=== PATIENT | female | born 1955 | race Caucasian/White ===

== ENCOUNTER 2020-10-10 16:50 | Emergency (ER) | payer BC, SELFPAY ==
--- NOTE | ~2020-10-10 | XR_ITS ---
XR elbow RT min 3V DATE: 10/10/2020 18:02 INDICATION: Fall. Right elbow injury, pain TECHNIQUE: 3 views COMPARISON: None FINDINGS: Degenerative spurring of the coronoid process of the elbow. No fracture or dislocation or j oint effusion. No periosteal reaction or bone destruction. IMPRESSION: Degenerative change; no fracture or dislocation or joint effusion Reviewed, dictated and finalized at location A.
--- NOTE | ~2020-10-10 | XR_ITS ---
XR shoulder RT min 2V DATE: 10/10/2020 18:02 INDICATION: Fall. Right shoulder and mid humeral pain TECHNIQUE: 5 views COMPARISON: None FINDINGS: Degenerative disc disease of the included mid to lower cervical spine. Degenerative spurrin g and mild scoliosis of the thoracic spine. No fracture or dislocation, periosteal reaction or bone destruction of the right shoulder. IMPRESSION: Degenerative changes of the cervical and thoracic spine No fracture or dislocation of the right shoulder Reviewed, dictated and finalized at location A.
--- NOTE | ~2020-10-10 | CT_ITS ---
EXAMINATION: CT cervical spine wo con DATE: 10/10/2020 18:14 INDICATION: Fall. Neck injury, pain TECHNIQUE: Computed tomography (CT) of the cervical spine was performed without intravenous contrast. Automated exposure control and iterative reconstruction technique were employed. Exam dose: 369.09 mGy-cm total exam DLP. COMPARISON: None FINDINGS: There is straightening of the cervical spine. Normal alignment of the cervical spine. C1 and C2 are normally aligned and the odontoid process is intact. No fracture or dislocation or locked facet. No prevertebral soft tissue swelling. There is multi-level degenerative disc disease, most pronounced at C5-6 and C6-7. There is degenerative change of the apophyseal and uncovertebral joints IMPRESSION: Straightening Multi-level degenerative disc disease, cervical spondylosis Reviewed, dictated and finalized at [facility]. Reviewed, dictated and finalized at location A.
[2020-10-10 16:56] VITALS: BP 131/76; PULSE 73; RESP 16; O2SAT 99
--- NOTE | 2020-10-10 19:36 | ED.GENADULT ---
HPI - General Adult General Chief complaint: Extremity Injury, Upper Stated complaint: FALL-R SHOULDER/ARM INJURY Time Seen by Provider: 10/10/20 16:58 Source: patient Mode of arrival: ambulatory Limitations: no limitations History of Present Illness HPI narrative: Patient is a 65-year-old female who presents to emergency department for evaluation of right upper extremity injury and neck injury that occurred Saturday stepping over a dog gate tripped and fell striking the head and injuring the neck and arm patient presents today for the first time for evaluation noting that she has aching pain to the neck upper arm and elbow patient denies syncope loss of consciousness patient on arrival appears uncomfortable but not in distress denies other complaints or injuries and as noted has not been seen for this Related Data Allergies Allergy/AdvReac Type Severity Reaction Status Date / Time Penicillins Allergy Swelling Verified 10/10/20 17:00 Review of Systems Review of Systems: All systems reviewed & are unremarkable except as noted in HPI and below PMFSH Past Medical History Medical History (Updated 10/10/20 @ 19:52 by Silvano Ortiz PA-C) Obesity Social History Social History (Updated 10/10/20 @ 19:37 by Silvano Ortiz PA-C) Smoking status: Never smoker Exam Narrative: Exam Narrative: GENERAL: Well-appearing, well-nourished, and in no acute distress. HEAD: Normocephalic, atraumatic. EYES: PERRLA and EOMI. ENT: Nares clear, no rhinorrhea or epistaxis. Mucous membranes moist. NECK: Supple. No adenopathy or masses. CHEST: Clear to auscultation. No respiratory distress. No wheezes rales or rhonchi HEART: Regular rate and rhythm. No murmur heard. Normal pulses EXTREMITIES: Patient with tenderness of the right paraspinal cervical musculature of the right rotator cuff musculature in the right elbow with no deformities noted remainder of extremity nontender no deformity SKIN: Warm, dry, no rash. NEURO: No focal deficits. Alert and oriented x3. Cranial nerves II through XII grossly intact. Neurovascularly intact PSYCH: Normal mood and affect. Course Course Emergency Course: Patient evaluated the emergency department found to have no fractures on CT imaging or x-rays potential for soft tissue injury such as rotator cuff injury patient will be referred to orthopedist for further evaluations and primary care. Vital Signs Vital signs: Vital Signs Pulse Rate 73 10/10/20 16:56 Respiratory Rate 16 10/10/20 16:56 Blood Pressure 131/76 10/10/20 16:56 Pulse Oximetry 99 10/10/20 16:56 Pulse Rate 73 10/10/20 16:56 Respiratory Rate 16 10/10/20 16:56 Blood Pressure 131/76 10/10/20 16:56 Pulse Oximetry 99 10/10/20 16:56 Medical Decision Making MDM Narrative Medical decision making narrative: Patients injury or pain is consistent with musculoskeletal etiology. No signs of neurological or vascular compromise on exam. Compartments and tisues are soft without signs of compartment syndrome. Pain is felt appropriate for further evaluation on an outpatient basis. Vital Signs Vital Signs: Vital Signs Pulse Rate 73 10/10/20 16:56 Respiratory Rate 16 10/10/20 16:56 Blood Pressure 131/76 10/10/20 16:56 Pulse Oximetry 99 10/10/20 16:56 Pulse Rate 73 10/10/20 16:56 Respiratory Rate 16 10/10/20 16:56 Blood Pressure 131/76 10/10/20 16:56 Pulse Oximetry 99 10/10/20 16:56 Imaging Data Radiologist's impression: ITS Impressions Shoulder X-Ray 10/10/20 18:04 IMPRESSION: Degenerative changes of the cervical and thoracic spine No fracture or dislocation of the right shoulder Elbow X-Ray 10/10/20 18:09 IMPRESSION: Degenerative change; no fracture or dislocation or joint effusion Cervical Spine CT 10/10/20 18:54 IMPRESSION: Straightening Multi-level degenerative disc disease, cervical spondylosis Discharge Plan Discharge Clini
== END 2020-10-10 20:10 | disposition home or self-care (01) ==
PROVIDERS: Emergency Provider Emergency Medicine; PCP Internal Medicine
DX: S16.1XXA Strain of muscle, fascia and tendon at neck level, initial encounter (principal); S59.911A Unspecified injury of right forearm, initial encounter; E66.9 Obesity, unspecified; Z68.37 Body mass index [BMI] 37.0-37.9, adult; M50.323 Other cervical disc degeneration at C6-C7 level; M47.812 Spondylosis without myelopathy or radiculopathy, cervical region; W18.09XA Striking against other object with subsequent fall, initial encounter
CPT/HCPCS: 72125; 73030; 73080; 99284

== ENCOUNTER → 2021-07-21 14:24 | Outpatient (CLI) | payer BC, SELFPAY ==
--- NOTE | ~2021-07-21 | MM_ITS ---
EXAMINATION: MM diagnostic babita BI w amandeep HISTORY: Right breast is getting smaller. No palpable lumps or pain. TECHNIQUE: Additional 3-D tomosynthesis images of the breasts were performed and synthetic 2-D images were generated. CAD analysis was submitted and interpreted. COMPARISON: Comparison to multiple prior studies sequentially, with oldest reviewed study dated 08/06. BREAST PARENCHYMAL COMPOSITION: The breasts are extremely dense, which lowers the sensitivity of mamm ography FINDINGS: There are scattered benign calcifications. There is chronic bilateral nipple inversion. The re are developing coarse benign calcifications in the right breast. No suspicious masses, calcificati ons or architectural distortion in either breast to suggest malignancy. IMPRESSION: 1. No mammographic evidence for malignancy in either breast. 2. Routine yearly screening mammogram and regular clinical breast examination are recommended. BI-RADS Category 2: Benign finding(s). Reviewed, dictated and finalized at location A. IMPRESSION: 1. No mammographic evidence for malignancy in either breast. 2. Routine yearly screening mammogram and regular clinical breast examination a re recommended. BI-RADS Category 2: Benign finding(s).
== END ==
PROVIDERS: PCP Internal Medicine; Visit Provider Nurse Practitioner
DX: R92.8 Other abnormal and inconclusive findings on diagnostic imaging of breast (principal)
CPT/HCPCS: 77062; 77066; G0279

== ENCOUNTER 2025-04-08 13:23 | Outpatient (CLI) | payer BC, SELFPAY ==
--- NOTE | ~2025-04-08 | US_ITS ---
EXAMINATION: Ultrasound abdomen and extension kidneys: DATE: 04/08/2025. INDICATION: Chronic kidney disease. TECHNIQUE: Views of kidneys and bladder with Doppler. COMPARISON: None available FINDINGS: Normal size kidneys measuring the length of 11.8 cm on the right and 10.3 cm on the left. No obstructive changes. Moderately increased echotexture of renal cortex indicating moderate degree of medical renal changes. No focal lesions of the bladder. Color jet from the left ureter is not noticed. IMPRESSION: 1. Normal size kidneys without obstructive changes. Increased echotexture of renal cortex of moderate degree suggesting medical renal changes. 2. No focal lesions of the urinary bladder. Color jet from the left ureter is not visualized. Reviewed, dictated and finalized at location T. [employer] IMPRESSION: 1. Normal size kidneys without obstructive changes. Increased echotexture of re nal cortex of moderate degree suggesting medical renal changes. 2. No focal lesions of the urinary bladder. Color jet from the left ureter is n ot visualized.
== END 2025-04-08 13:24 | disposition home or self-care (01) ==
LOC: ANHIMG 13:32
PROVIDERS: PCP Internal Medicine; Visit Provider Specialist
DX: N18.9 Chronic kidney disease, unspecified (principal)
CPT/HCPCS: 76770